=== PATIENT | male | born 1995 | race African-American/Black ===

== ENCOUNTER 2016-09-26 16:01 | Emergency (ER) | payer OTHER ==
[2016-09-26] MEDS ORDERED: IBUPROFEN 800 MG TABLET PO STA (16:20)
[2016-09-26] MEDS ORDERED: HYDROcod/ACETAM 5/325 MG TABLET PO STA (16:20)
[2016-09-26] MEDS ORDERED: IBUPROFEN 800 MG TABLET PO ONE (16:46)
[2016-09-26] MEDS ORDERED: HYDROcod/ACETAM 5/325 MG TABLET ONE (16:46)
== END 2016-09-26 17:08 | disposition home or self-care (01) ==
DX: S89.91XA Unspecified injury of right lower leg, initial encounter (principal); X50.1XXA Overexertion from prolonged static or awkward postures, initial encounter; Y93.67 Activity, basketball; Y92.310 Basketball court as the place of occurrence of the external cause; Y99.8 Other external cause status
CPT/HCPCS: 73564; 99283; A9270